=== PATIENT | female | born 1970 | race Caucasian/White ===

== ENCOUNTER 2021-09-05 18:45 | Emergency (ER) | payer OTHER, BC ==
[2021-09-05] MEDS ORDERED: Acetaminophen 500 MG TAB ONE (20:19)
== END 2021-09-05 21:03 | disposition home or self-care (01) ==
LOC: ERS 18:45
DX: S43.402A Unspecified sprain of left shoulder joint, initial encounter (principal); V43.52XA Car driver injured in collision with other type car in traffic accident, initial encounter; R03.0 Elevated blood-pressure reading, without diagnosis of hypertension